=== PATIENT | female | born 1995 | race Caucasian/White ===

== ENCOUNTER 2017-03-27 05:00 | Inpatient (IN) | payer MEDICAID, OTHER ==
[~2017-03-27] VITALS: Ht 154.9 cm; Wt 85.3 kg
[2017-03-27] MEDS ORDERED: PREN1SGL25 PO (05:23)
[2017-03-27] MEDS ORDERED: LACTATED RINGERS 1,000 ML IV SCH (06:09)
[2017-03-27] MEDS ORDERED: IBUPROFEN 800 MG TAB PO PRN ×2 (06:10→07:15)
[2017-03-27] MEDS ORDERED: METHYLERGONOVINE 0.2 MG/ML AMP IM PRN ×2 (06:10→07:15)
[2017-03-27] MEDS ORDERED: CARBOPROST 250 MCG/ML AMP IM PRN (06:10)
[2017-03-27 06:35] VITALS: BP 103/59
[2017-03-27] MEDS ORDERED: ceFAZolin 2,000 MG in NACL 0.9% 100 ML IV ONE (07:10)
[2017-03-27] MEDS ORDERED: TEMAZEPAM 15 MG CAP PO PRN (07:15)
[2017-03-27] MEDS ORDERED: TRIMETHOBENZAMIDE 200 MG/2 ML SYR IM PRN (07:15)
[2017-03-27] MEDS ORDERED: MEASLES, MUMPS, AND RUBELLA 1 VIAL SQVAC PRN (07:15)
[2017-03-27 07:19] LABS: APPEARANCE,URINE CLEAR (CLEAR); BILIRUBIN,URINE NEGATIVE (NEGATIVE); BLOOD, URINE NEGATIVE (NEGATIVE); COLOR,URINE YELLOW (YELLOW); LEUKOCYTE ESTERASE ,URINE NEGATIVE (NEGATIVE); NITRITE, URINE NEGATIVE (NEGATIVE); PH,URINE 6.5 (5.0-9.0); UGLUCOSE NEGATIVE (NEGATIVE)
[2017-03-27 07:20] LABS: ANION GAP 10.7 (8-16); CREATININE 0.5 mg/dL (0.6-1.3); POTASSIUM 3.7 mmol/L (3.5-5.1)
[2017-03-27 07:22] LABS: BASOPHILS # (AUTO) 0.1 K/uL (0.00-0.22); BASOPHILS % (AUTO) 0.8 % (0.0-2.0); EOSINOPHILS # (AUTO) 0.1 K/uL (0-0.4); EOSINOPHILS % (AUTO) 0.7 % (0.0-4.0); HEMATOCRIT 35.6 % (36-48); HEMOGLOBIN 11.6 g/dL (12.0-16.0); LYMPHOCYTES # (AUTO) 1.7 K/uL (2.5-16.5); LYMPHOCYTES % (AUTO) 19.8 % (20.5-51.1); MEAN CORPUSCULAR HEMOGLOBIN 26 pg (27-31); MEAN CORPUSCULAR HGB CONC 33 g/dL (33-37); MEAN CORPUSCULAR VOLUME 80 fL (80-94); MONOCYTES # (AUTO) 0.8 K/uL (0.8-1.0); MONOCYTES % (AUTO) 9.3 % (1.7-9.3); NEUTROPHILS % (AUTO) 69.4 % (42.2-75.2); PLATELET COUNT (AUTO) 208 K/uL (140-450); RED BLOOD CELL COUNT(AUTO) 4.45 MIL/uL (4.20-5.40); RED CELL DISTRIBUTION WIDTH 13.6 % (11.6-13.7); WHITE BLOOD COUNT (AUTO) 8.7 K/uL (4.8-10.8)
[2017-03-27] MEDS ORDERED: ceFAZolin 1,000 MG VIAL ONE (07:22)
[2017-03-27 07:26] LABS: ALBUMIN 2.2 g/dL (3.4-5.0); TOTAL BILIRUBIN 0.4 mg/dL (0.0-1.0)
[2017-03-27] MEDS ORDERED: OXYTOCIN 10 UNITS/ML VIAL ONE ×2 (07:42→08:53)
[2017-03-27] MEDS ORDERED: MORPHINE PRES FREE 10 MG/10 ML AMP IV ONE (08:17)
[2017-03-27] MEDS ORDERED: MIDAZOLAM 2 MG/2 ML VIAL ONE (08:17)
[2017-03-27] MEDS ORDERED: OXYTOCIN 20 UNITS in LACTATED RINGERS 1,000 ML IV SCH (08:29)
[2017-03-27] MEDS ORDERED: diphenhydrAMINE 50 MG/ML VIAL IVP PRN ×2 (08:30)
[2017-03-27] MEDS ORDERED: NALBUPHINE 10 MG/ML AMP IVP PRN (08:30)
[2017-03-27] MEDS ORDERED: NALOXONE 0.4 MG/ML VIAL IVP PRN ×3 (08:30)
[2017-03-27] MEDS ORDERED: ONDANSETRON 4 MG/2 ML VIAL IVP PRN ×2 (08:30)
[2017-03-27] MEDS ORDERED: MEPERIDINE 25 MG/ML SYR IVP PRN (08:30)
[2017-03-27] MEDS ORDERED: HYDROmorphone PFS 2 MG/ML SYR IVP PRN (08:30)
--- NOTE | 2017-03-27 08:55 | NUR ---
PATIENT HAS BEEN SCREENED AND CATEGORIZED LOW NUTRITION RISK. PATIENT WILL BE SEEN WITHIN 7 DAYS OF ADMISSION. 04/02/[address]
[2017-03-27] MEDS: KETOROLAC 30 MG/ML VIAL IM/IVP SCH ×2 (15:55→23:55)
[2017-03-27] MEDS: OXYTOCIN 20 UNITS in LACTATED RINGERS 1,000 ML IV SCH ×2 (15:58→23:53)
[2017-03-27] MEDS: DOCUSATE SOD/SENNA 50/8.6 MG 1 TAB PO SCH (20:59)
[2017-03-27] MEDS ORDERED: OXYTOCIN 20 UNITS/LR PREMIX 1,000 ML IV ONE (23:58)
[2017-03-28 06:03] LABS: BASOPHILS # (AUTO) 0.1 K/uL (0.00-0.22); BASOPHILS % (AUTO) 1.4 % (0.0-2.0); EOSINOPHILS # (AUTO) 0.1 K/uL (0-0.4); EOSINOPHILS % (AUTO) 0.8 % (0.0-4.0); HEMATOCRIT 33.9 % (36-48); HEMOGLOBIN 10.7 g/dL (12.0-16.0); LYMPHOCYTES # (AUTO) 1.7 K/uL (2.5-16.5); LYMPHOCYTES % (AUTO) 19.1 % (20.5-51.1); MEAN CORPUSCULAR HEMOGLOBIN 25 pg (27-31); MEAN CORPUSCULAR HGB CONC 31 g/dL (33-37); MEAN CORPUSCULAR VOLUME 79 fL (80-94); MONOCYTES # (AUTO) 0.7 K/uL (0.8-1.0); MONOCYTES % (AUTO) 7.6 % (1.7-9.3); NEUTROPHILS # (AUTO) 6.4 K/uL (1.8-7.7); NEUTROPHILS % (AUTO) 71.1 % (42.2-75.2); PLATELET COUNT (AUTO) 185 K/uL (140-450); RED BLOOD CELL COUNT(AUTO) 4.28 MIL/uL (4.20-5.40); RED CELL DISTRIBUTION WIDTH 13.9 % (11.6-13.7)
[2017-03-28] MEDS: HYDROcodone/APAP 5/325 MG 1 TAB TAB PO PRN ×2 (09:00→17:32)
[2017-03-28] MEDS: SIMETHICONE 80 MG TAB.CHEW PO PRN ×4 (09:01→22:06)
[2017-03-28] MEDS: DOCUSATE SOD/SENNA 50/8.6 MG 1 TAB PO SCH (22:05)
[2017-03-28] MEDS: oxyCODONE/APAP 5/325 MG 1 TAB TAB PO PRN (22:12)
[2017-03-29] MEDS: oxyCODONE/APAP 5/325 MG 1 TAB TAB PO PRN ×2 (03:05→11:00)
[2017-03-29] MEDS ORDERED: IBUP-2213 PO (08:17)
== END 2017-03-29 14:10 | disposition home or self-care (01) | DRG 540 ==
LOC: MLD 05:00 → MFCC 08:15
PROVIDERS: ADMIT Obstetrics & Gynecology; ATTEND Obstetrics & Gynecology
PROC: 10D00Z1 Extraction of Products of Conception, Low, Open Approach (ICD-10-PCS; principal; 2017-03-27 07:30)
DX: O34.211 Maternal care for low transverse scar from previous cesarean delivery (principal); E66.9 Obesity, unspecified; O24.429 Gestational diabetes mellitus in childbirth, unspecified control; O99.214 Obesity complicating childbirth; Z37.0 Single live birth; Z68.35 Body mass index [BMI] 35.0-35.9, adult; Z28.21 Immunization not carried out because of patient refusal; Z3A.39 39 weeks gestation of pregnancy
CPT/HCPCS: 36415; 80053; 81003; 82948; 85025; 86592; 86886; 86900; 86901; 87081; J0690; J1885; J2250; J2270; J2590; J7060; J7120